=== PATIENT | female | born 1980 | race African-American/Black ===

== ENCOUNTER 2022-10-09 17:55 | Emergency (ER) | payer SELFPAY ==
--- OUTSIDE RECORDS SUMMARY | 2022-10-09 18:01 | XMS REPORT | Continuity of Care Document ---
:1980 Author Organization [facility] t Address [address] [place] [address] Care Team Providers Name Role Phone Handy Blanchard Primary Care Physician CLIF TRUJILLO Attending Clinician Unavailable PARAM TORIBIO Attending Clinician Unavailable Param Toribio DO Attending Clinician Doctor Unassigned, [place] Attending Clinician Unavailable CRYSTAL ALLISON Attending Clinician Unavailable Crystal Allison DO Attending Clinician Silvia Marcelino Attending Clinician [phone] GABRIELLE VEGA Attending Clinician Unavailable Gabrielle Vega DO Attending Clinician TONE DASILVA Attending Clinician Unavailable Tone Stern Attending Clinician SILVIA LOZANO Attending Clinician Unavailable DONI TRUJILLO Attending Clinician Unavailable Doni Trujillo MD Attending Clinician ELISA Attending Clinician Unavailable YOU BURKS Attending Clinician Unavailable You Kulkarni Attending Clinician JO MCCALLUM Attending Clinician Unavailable JO MCCALLUM Attending Clinician Unavailable Jo Mccallum DO Attending Clinician Cydney Newman MD Attending Clinician CYDNEY NEWMAN Attending Clinician Unavailable Susan Jeter RN Attending Clinician Unavailable Only, Ang Db Test Attending Clinician Unavailable Green COMMUNICATIONS DEPARTMENT CHAIRPERSON, Latanya Attending Clinician EDIN LATANYA Attending Clinician Unavailable GUSTAVO, DIMITRIS Attending Clinician Unavailable Gustavo COMMUNICATIONS DEPARTMENT CHAIRPERSON, Dimitris Attending Clinician CARO GARCIA Attending Clinician Unavailable Clif Trujillo Attending Clinician ELAINA BUTCHER Attending Clinician Unavailable QASIM REYES Attending Clinician Unavailable BROCK SUAREZ Attending Clinician Unavailable Maile Moore Attending Clinician CRYSTAL ALLISON Admitting Clinician Unavailable GABRIELLE VEGA Admitting Clinician Unavailable TONE DASILVA Admitting Clinician Unavailable DONI TRUJILLO Admitting Clinician Unavailable ELISA Admitting Clinician Unavailable YOU BURKS Admitting Clinician Unavailable Payers Payer Name Policy Type Policy Number Effective Date Expiration Date [facility] [id number] 2016 PPO 00:00:00 [facility] [id number] 2022 2022 00:00:00 00:00:00 Problems Condition Condition Condition Status Onset Resolution Last Treating Co mments Source Name Details Category Date Date Treatment Clinician Date UNK UNK Diagnosis Active 2021-09-19 Mem oria Active 08-19 14:51:00 l 08/19/2021 00:00: [facility] [place] EGD EGD Diagnosis Active 2021-09-19 Mem oria Active 08-19 14:51:00 l 08/19/2021 00:00: [facility] 00 [place] Pleural Pleural Disease Active 2020-03 Univers thickening thickening 0-06 it y of 00:00: [address] Branch Symptomati Symptomati Disease Active U nivers c mammary c mammary 904 ity of hypertroph [place] Recurrent Recurrent Disease Active Uni vers chest pain chest pain 9-04 it y of 00:00: [place] [address] Medical Branch History of History of Disease Active U nivers COVID-19 COVID-19 8- ity of 00:00: [place] [address] Medical Branch R10.9 - R10.9 - Diagnosis Active 2020-08-21 Memoria UNSPECIFIE UNSPECIFIE 5-18 14:25:00 l D D 00:01: [place] ABDOMINAL ABDOMINAL 00 PAIN PAIN Active 08/13/2020 MH OPID [place] [facility] Microscopi Disease Active U vanesaers c c 2- ity of hemat[place] Scre[place] Screening Disease Active Uni vers examinatio examinatio 1-19 it y of n for STD n for STD 00:00: [place] s (sexually (sexually 00 Medi hortensia transmitte transmitte Br anch d disease) d disease) Essential Essential Disease Active Uni vers hypertensi hypertensi 1-07 it y of on on 00:: [place] [address] Medical Branch BMI BMI Disease Active Overview: Univer s 32.0-32.9, 32.0-32.9, 5-27 Formattin ity of adult adult 00:00: g of this [place] 00 note Medical might be Branch different from the original. 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 Dx in 2011. Previousl y on Lamictal 100mg po once daily. Allergies, Adverse Reactions, Alerts Allergy Allergy Status Severity Reaction(s) Onset Inactive Treating Comm ents Source Name Type Date Date Clinician NO KNOWN Drug Active Univers ALLERGIE Class ity of S [facility] Social History Social Habit Start Date Stop Date Quantity Comments Source Gender identity Universit y of [facility] Sexual orientation Univer sity of [facility] Alcohol intake 2022-10-06 2022-10-06 Current drinker Unive rsity of 00:00:00 00:00:00 of alcohol [facility] (finding) Branch History of Social 2022-10-06 2022-10-06 Univers ity of function 00:00:00 00:00:00 [facility] Exposure to 2022-07-09 2022-07-19 Not sure University of SARS-CoV-2 (event) 00:00:00 18:38:00 [facility] Cigarettes smoked 2020-05-17 2020-05-17 Univers ity of current (pack per 00:00:00 00:00:00 [facility] ) - Reported Branch Cigarette 2020-05-17 2020-05-17 University of pack-years 00:00:00 00:00:00 [facility] Tobacco use and 2020-05-17 2020-05-17 Smokeless Universit y of exposure 00:00:00 00:00:00 tobacco non-user [facility] dicca Branch History of tobacco 2020-05-12 Cigarette Smoker University of use 00:00:00 [facility] Branch History SDOH 2020-04-16 2020-04-16 2 University o f Alcohol Frequency 00:00:00 00:00:00 [facility] Branch History SDOH 2020-04-16 2020-04-16 99 University o f Alcohol Std Drinks 00:00:00 00:00:00 [facility] History SDOH 2020-04-16 2020-04-16 99 University o f Alcohol Binge 00:00:00 00:00:00 [facility] Branch Tobacco Comment 2020-04-16 2020-04-16 2 ciggs a day Univer sity of 00:00:00 00:00:00 [facility] Alcohol Comment 2016-06-24 2016-06-24 socially Universit y of 00:00:00 00:00:00 [facility] Sex Ass[birth year] At [birth year] Universit y of 00:00:00 00:00:00 [facility] Smoking Status Start Date Stop Date Source Ex-smoker 2020-05-17 00:00:00 2020-05-17 00:00:00 [facility] Medical Branch Social History 2017-04-01 17:51:14 [facility] Medications Ordered Filled Start Stop Current Ordering Indication Dosage Frequency Signature Comments Components Source Medication Medication Date Date Medication? Clinician (SIG) Name Name NaCl 0.9% 2022- No 1000mL at 999 Uni vers (NS) bolus 10-06 07-12 mL/hr, ity of infusion 22:00: 01:00 1,000 mL, Rohit as 1,000 mL 00 :00 IV Medical Infusion, Branch ONCE, 1 dose, On Wed10/06/22 at 1700, STAT magnesium 2022- No 2g 2 g, IV Univ ers sulfate in 09-10 Piggyback, it y of water 2 19:00: 18:54 Administer Rohit as gram/50 mL 00 :00 over 60 Medica l (4 %) Minutes, Branch infusion 2 ONCE, 1 g dose, On Wed09/10/22 at 1400, Routine ketorolac 2022- No 30mg 30 mg, Unive rs (TORADOL) 09-10 Slow IV ity of injection 16:00: 16:50 Push, [place] 30 mg 00 :00 ONCE, 1 Medical dose, On Branch Chante 09/10/22 at 1100, Routine maalox:diph 2022- No 15mL 15 mL, Uni vers enhydrAMINE 07-20 04-24 Oral, ity of :lidocaine 00:15: 00:51 ONCE, 1 Rohit as 2 % viscous 00 :00 dose, On Medi hortensia 1:1:1 [place] Branch ([facility] 07/19/22 at [facility]) 191, oral Routine suspension 15 mL amLODIPine 2022-0 Yes 5mg Take 1 Unive rs 5 mg tablet 4-23 tablet by ity of 18:41: mouth in [place] [address] the Medical morning. Branch amLODIPine 3-0 Yes 5mg Take 1 Unive rs 5 mg tablet 4-23 tablet by ity of 18:41: mouth in [place] [address] the Medical morning. Branch amLODIPine 3-0 Yes 5mg Take 1 Unive rs 5 mg tablet 4-23 tablet by ity of 18:41: mouth in [place] [address] the Medical morning. Branch amLODIPine 3-0 Yes 5mg Take 1 Unive rs 5 mg tablet 4-23 tablet by ity of 18:41: mouth in [place] [address] the morning. Branch amLODIPine 3-0 Yes 5mg Take 1 Unive rs 5 mg tablet 4-23 tablet by ity of 18:41: mouth in [place] [address] the Medical morning. Branch amLODIPine 3-0 Yes 5mg Take 1 Unive rs 5 mg tablet 4-23 tablet by ity of 18:41: mouth in [place] [address] the morning. Branch nitroglycer 2021-0 2021- No .4mg 0.4 mg, Un heraclio in 05 05-05 Sublingual ity of (NITROSTAT) 22:00: 21:05 , ONCE, 1 [place] sublingual 00 :00 dose, On Medic al tablet 0.4 Chante 07/31/21 Bra nch mg at 1700, STEVE amLODIPine 2021-0 Yes 5mg Take 5 mg Un heraclio 5 mg tablet 1-19 by mouth ity of 13:27: daily. [address] amLODIPine 2021-0 Yes 5mg Take 5 mg Un heraclio 5 mg tablet 1-19 by mouth ity of 13:27: daily. [address] amLODIPine 2021-0 Yes 5mg Take 5 mg Un heraclio 5 mg tablet 1-19 by mouth ity of 13:27: daily. [address] amLODIPine 2-0 Yes 5mg Take 5 mg Un heraclio 5 mg tablet 1-19 by mouth ity of 13:27: daily. [address] amLODIPine 2-0 Yes 5mg Take 5 mg Un heraclio 5 mg tablet 1-19 by mouth ity of 13:27: daily. [address] amLODIPine 2-0 Yes 5mg Take 5 mg Un heraclio 5 mg tablet 1-19 by mouth ity of 13:27: daily. [address] amLODIPine 2-0 Yes 5mg Take 5 mg Un heraclio 5 mg tablet 1-19 by mouth ity of 13:27: daily. [address] amLODIPine 2-0 Yes 5mg Take 5 mg Un heraclio 5 mg tablet 1-19 by mouth ity of 13:27: daily. [address] amLODIPine 2-0 Yes 5mg Take 5 mg Un heraclio 5 mg tablet 1-19 by mouth ity of 13:27: daily. [place] 15 Medical Branch amLODIPine 2022-0 Yes 5mg Take 5 mg Un heraclio 5 mg tablet 1-19 by mouth ity of 13:27: daily. [place] 15 Medical Branch amLODIPine 2022-0 Yes 5mg Take 5 mg Un heraclio 5 mg tablet 1-19 by mouth ity of 13:27: daily. [place] 15 Medical Branch candesartan 1-0 Yes TAKE 1 Univ ers 16 mg 1-20 TABLET BY ity of tablet 00:00: [facility] EVERY DAY Medical FOR BLOOD Branch PRESSURE candesartan 1-0 Yes TAKE 1 Univ ers 16 mg 1-20 TABLET BY ity of tablet 00:00: [facility] EVERY DAY Medical FOR BLOOD Branch PRESSURE candesartan 1-0 Yes TAKE 1 Univ ers 16 mg 1-20 TABLET BY ity of tablet 00:00: [facility] EVERY DAY Medical FOR BLOOD Branch PRESSURE candesartan 1-0 Yes TAKE 1 Univ ers 16 mg 1-20 TABLET BY ity of tablet 00:00: [facility] EVERY DAY Medical FOR BLOOD Branch PRESSURE candesartan 1-0 Yes TAKE 1 Univ ers 16 mg 1-20 TABLET BY ity of tablet 00:00: [facility] EVERY DAY Medical FOR BLOOD Branch PRESSURE candesartan 1-0 Yes TAKE 1 Univ ers 16 mg 1-20 TABLET BY ity of tablet 00:00: [facility] EVERY DAY Medical FOR BLOOD Branch PRESSURE candesartan 2021-0 Yes TAKE 1 Univ ers 16 mg 1-20 TABLET BY ity of tablet 00:00: [facility] EVERY DAY Medical FOR BLOOD Branch PRESSURE candesartan 2021-0 Yes TAKE 1 Univ ers 16 mg 1-20 TABLET BY ity of tablet 00:00: [facility] EVERY DAY Medical FOR BLOOD Branch PRESSURE candesartan 2021-0 Yes TAKE 1 Univ ers 16 mg 1-20 TABLET BY ity of tablet 00:00: [facility] EVERY DAY Medical FOR BLOOD Branch PRESSURE candesartan 2021-0 Yes TAKE 1 Univ ers 16 mg 1-20 TABLET BY ity of tablet 00:00: [facility] EVERY DAY Medical FOR BLOOD Branch PRESSURE candesartan 2021-0 Yes TAKE 1 Univ ers 16 mg 1-20 TABLET BY ity of tablet 00:00: [facility] EVERY DAY Medical FOR BLOOD Branch PRESSURE candesartan 2021-0 Yes TAKE 1 Univ ers 16 mg 1-20 TABLET BY ity of tablet 00:00: MOUTH [place] EVERY DAY Medical FOR BLOOD Branch PRESSURE candesartan 2020-0 Yes TAKE 1 Univ ers 16 mg 1-20 TABLET BY ity of tablet 00:00: MOUTH [place] 00 EVERY DAY Medical FOR BLOOD Branch PRESSURE candesartan 2020-0 Yes TAKE 1 Univ ers 16 mg 1-20 TABLET BY ity of tablet 00:00: [facility] 00 EVERY DAY Medical FOR BLOOD Branch PRESSURE candesartan 2020-0 Yes TAKE 1 Univ ers 16 mg 1-20 TABLET BY ity of tablet 00:00: [facility] 00 EVERY DAY Medical FOR BLOOD Branch PRESSURE candesartan 2020-0 Yes TAKE 1 Univ ers 16 mg 1-20 TABLET BY ity of tablet 00:00: [facility] 00 EVERY DAY Medical FOR BLOOD Branch PRESSURE candesartan 2020-0 Yes TAKE 1 Univ ers 16 mg 1-20 TABLET BY ity of tablet 00:00: [facility] 00 EVERY DAY Medical FOR BLOOD Branch PRESSURE Immunizations Ordered Filled Immunization Date Status Comments [facility] e Immunization Name Name TDAP 2014-08-21 Completed University of 00:00:00 [facility] TDAP 2014-08-21 Completed University of 00:00:00 [facility] TDAP 2014-08-21 Completed University of 00:00:00 [facility] TDAP 2014-08-21 Completed University of 00:00:00 [facility] TDAP 2014-08-21 Completed University of 00:00:00 [facility] TDAP 2014-08-21 Completed University of 00:00:00 [facility] TDAP 2014-08-21 Completed University of 00:00:00 [facility] TDAP 2014-08-21 Completed University of 00:00:00 [facility] TDAP 2014-08-21 Completed University of 00:00:00 [facility] TDAP 2014-08-21 Completed University of 00:00:00 [facility] TDAP 2014-08-21 Completed University of 00:00:00 [facility] TDAP 2014-08-21 Completed University of 00:00:00 [facility] TDAP 2014-08-21 Completed University of 00:00:00 [facility] TDAP 2014-08-21 Completed University of 00:00:00 [facility] TDAP 2014-08-21 Completed University of 00:00:00 [place] [facility] TDAP 2014-08-21 Completed University of 00:00:00 [place] [facility] TDAP 2014-08-21 Completed University of 00:00:00 [place] [facility] Rubella 2003-06-06 Completed University of 00:00:00 [place] [facility] Rubella 2003-06-06 Completed University of 00:00:00 [place] [facility] Rubella 2003-06-06 Completed University of 00:00:00 [place] [facility] Rubella 2003-06-06 Completed University of 00:00:00 [place] [facility] Rubella 2003-06-06 Completed University of 00:00:00 [place] [facility] Rubella 2003-06-06 Completed University of 00:00:00 [place] [facility] Rubella 2003-06-06 Completed University of 00:00:00 [place] [facility] Rubella 2003-06-06 Completed University of 00:00:00 [place] [facility] Rubella 2003-06-06 Completed University of 00:00:00 [place] [facility] Rubella 2003-06-06 Completed University of 00:00:00 [place] [facility] Rubella 2003-06-06 Completed University of 00:00:00 [place] [facility] Rubella 2003-06-06 Completed University of 00:00:00 [place] [facility] Rubella 2003-06-06 Completed University of 00:00:00 [place] [facility] Rubella 2003-06-06 Completed University of 00:00:00 [place] [facility] Rubella 2003-06-06 Completed University of 00:00:00 [place] [facility] Rubella 2003-06-06 Completed University of 00:00:00 [place] [facility] Rubella 2003-06-06 Completed University of 00:00:00 [place] [facility] Td 1998-06-22 Completed University of 00:00:00 [place] [facility] Td 1998-06-22 Completed University of 00:00:00 [place] [facility] Td 1998-06-22 Completed University of 00:00:00 [place] [facility] Td 1998-06-22 Completed University of 00:00:00 [place] [facility] Td 1998-06-22 Completed University of 00:00:00 [place] [facility] Td 1998-06-22 Completed University of 00:00:00 [place] [facility] Td 1998-06-22 Completed University of 00:00:00 [place] [facility] Td 1998-06-22 Completed University of 00:00:00 [place] [facility] TD, NOS 1998-06-22 Completed University of 00:00:00 [place] [facility] TD, NOS 1998-06-22 Completed University of 00:00:00 [place] [facility] TD, NOS 1998-06-22 Completed University of 00:00:00 [place] [facility] TD, NOS 1998-06-22 Completed University of 00:00:00 [place] [facility] TD, NOS 1998-06-22 Completed University of 00:00:00 [place] [facility] TD, NOS 1998-06-22 Completed University of 00:00:00 [place] [facility] TD, NOS 1998-06-22 Completed University of 00:00:00 [place] [facility] TD, NOS 1998-06-22 Completed University of 00:00:00 [place] [facility] TD, NOS 1998-06-22 Completed University of 00:00:00 [facility] Vital Signs Vital Name Observation Time Observation Value Comments Source Systolic blood 2022-10-06 23:30:00 139 mm[Hg] Univer sity of pressure [facility] Diastolic blood 2022-10-06 23:30:00 107 mm[Hg] Unive rsity of [facility] Heart rate 2022-10-06 23:30:00 90 /min [facility] Respiratory rate 2022-10-06 23:30:00 11 /min [facility] Oxygen saturation in 2022-10-06 23:30:00 100 /min [facility] Arterial blood by [facility] Pulse oximetry [place] Body temperature 2022-10-06 22:12:00 36.78 Rhea [facility] Body height 2022-10-06 22:12:00 157.5 cm [facility] Body weight 2022-10-06 22:12:00 80.967 kg [facility] BMI 2022-10-06 22:12:00 32.65 kg/m2 [facility] Systolic blood 2022-09-10 18:30:00 133 mm[Hg] Univer sity of pressure [facility] Diastolic blood 2022-09-10 18:30:00 100 mm[Hg] Unive rsity of pressure [facility] Heart rate 2022-09-10 18:30:00 71 /min [facility] Respiratory rate 2022-09-10 18:30:00 16 /min [facility] in 2022-09-10 18:30:00 95 /min University of Arterial blood by [place] [facility] Pulse oximetry Branch Body temperature 2022-09-10 15:00:00 37 Rhea Univ ersity of [place] [facility] Body height 2022-09-10 15:00:00 160 cm Universi ty of [place] [facility] Body weight 2022-09-10 15:00:00 79.379 kg Universi ty of [place] [facility] BMI 2022-09-10 15:00:00 31.00 kg/m2 Universi ty of [place] [facility] Systolic blood 2022-07-19 23:40:00 148 mm[Hg] Univer sity of pressure [place] [facility] Diastolic blood 2022-07-19 23:40:00 105 mm[Hg] Unive rsity of pressure [place] [facility] Heart rate 2022-07-19 23:40:00 72 /min Universi ty of [place] [facility] Body temperature 2022-07-19 23:40:00 36.72 Rhea Univ ersity of [place] [facility] Respiratory rate 2022-07-19 23:40:00 14 /min Univ ersity of [place] [facility] Body height 2022-07-19 23:40:00 160 cm Universi ty of [place] [facility] Body weight 2022-07-19 23:40:00 79.379 kg Universi ty of [place] [facility] BMI 2022-07-19 23:40:00 31.00 kg/m2 Universi ty of [place] [facility] Oxygen saturation in 2022-07-19 23:40:00 99 /min University of Arterial blood by [place] [employer] hortensia Pulse oximetry Branch Systolic blood 2022-01-03 02:00:00 140 mm[Hg] Univer sity of pressure [place] [facility] Diastolic blood 2022-01-03 02:00:00 94 mm[Hg] Unive rsity of pressure [place] [facility] Heart rate 2022-01-03 02:00:00 68 /min Universi ty of [place] [facility] Respiratory rate 2022-01-03 02:00:00 16 /min Univ ersity of [place] [facility] Oxygen saturation in 2022-01-03 02:00:00 98 /min University of Arterial blood by [place] [employer] hortensia Pulse oximetry Branch Body temperature 2022-01-02 23:35:00 36.44 Rhea Univ ersity of [place] [facility] Body height 2022-01-02 23:35:00 160 cm Universi ty of [place] Medical [place] Body weight 2022-01-02 23:35:00 79.379 kg Universi ty of [facility] BMI 2022-01-02 23:35:00 31.00 kg/m2 Universi ty of [facility] Systolic blood 2021-08-01 00:06:00 156 mm[Hg] Univer sity of pressure [facility] Diastolic blood 2021-08-01 00:06:00 106 mm[Hg] Unive rsity of pressure [facility] Heart rate 2021-08-01 00:06:00 70 /min Universi ty of [facility] Respiratory rate 2021-08-01 00:06:00 22 /min [facility] Oxygen saturation in 2021-08-01 00:06:00 98 /min [facility] Arterial blood by [facility] Pulse oximetry Branch Body temperature 2021-07-31 20:33:00 36.5 Rhea Univ ersity of [facility] Systolic blood 2021-04-16 19:18:00 131 mm[Hg] Univer sity of pressure [facility] Diastolic blood 2021-04-16 19:18:00 89 mm[Hg] Unive rsity of pressure [facility] Heart rate 2021-04-16 19:18:00 77 /min Universi ty of [facility] Body temperature 2021-04-16 19:18:00 37.06 Rhea Univ ersity of [facility] Respiratory rate 2021-04-16 19:18:00 20 /min Univ ersity of [facility] Body weight 2021-04-16 19:18:00 84.687 kg Universi ty of [facility] BMI 2021-04-16 19:18:00 32.05 kg/m2 Universi ty of [facility] Heart Rate 2017-04-01 17:39:00 Ramon Obando Systolic (mm Hg) 2017-04-01 17:39:00 Frantz Obando Diastolic (mm Hg) 2017-04-01 17:39:00 Mem rocío [place] BMI Calculated 2017-04-01 17:39:00 Chayo ventura [place] Weight 2017-04-01 17:39:00 [facility] [place] Height 2017-04-01 17:39:00 [facility] Oral (F) 2017-04-01 17:39:00 98.1 F [facility] Procedures Procedure Date / Time Performed Performing Clinician Sour e XR CHEST 1 VW 2022-10-06 22:41:53 Singer [facility] POCT TEST 2022-10-06 22:29:00 Singer [facility] URINALYSIS 2022-10-06 22:27:00 Singer [facility] TROPONIN I 2022-10-06 22:24:00 Singer [facility] COMP. METABOLIC PANEL 2022-10-06 22:24:00 [facility] ([id number]) [facility] CBC WITH DIFF 2022-10-06 22:24:00 [facility] CONSENT/REFUSAL FOR 2022-10-06 21:49:47 Doctor Unassigned, No [facility] DIAGNOSIS AND [facility] TREATMENT MAGNESIUM 2022-09-10 16:50:00 Crystal Allison [facility] TROPONIN I 2022-09-10 16:50:00 Crystal Allison [facility] COMP. METABOLIC PANEL 2022-09-10 16:50:00 Crystal Allison [facility] ([id number]) [facility] CBC WITH DIFF 2022-09-10 16:50:00 Crystal Allison [facility] XR CHEST 1 VW 2022-09-10 16:16:39 Crystal Allison [facility] ASSIGNMENT OF BENEFITS 2022-09-10 15:45:58 Doctor Unassigned, No [facility] CONSENT/REFUSAL FOR 2022-09-10 14:42:19 Doctor Unassigned, No [facility] DIAGNOSIS AND [facility] TREATMENT LIPASE 2022-07-20 00:52:00 Gabrielle Vega [facility] TROPONIN I 2022-07-20 00:52:00 Gabrielle Vega [facility] COMP. METABOLIC PANEL 2022-07-20 00:52:00 Gabrielle Vega [facility] ([id number]) [facility] CBC WITH DIFF 2022-07-20 00:52:00 Gabrielle Vega [facility] XR CHEST 1 VW 2022-07-20 00:32:09 Gabrielle Vega [facility] NOTICE OF PRIVACY 2022-07-19 23:32:52 Doctor Unassigned, No [facility] CONSENT/REFUSAL FOR 2022-07-19 23:32:16 Doctor Unassigned, No [facility] DIAGNOSIS AND [facility] TREATMENT ASSIGNMENT OF BENEFITS 2022-05-08 19:37:50 Doctor Unassigned, No [facility] XR CHEST 1 VW 2022-01-03 01:20:25 [facility] 2022-01-03 01:11:00 [facility] BASIC METABOLIC PANEL 2022-01-03 01:11:00 Doni Trujillo [facility] (NA, K, CL, CO2, Medical Branch GLUCOSE, BUN, CREATININE, CA) CBC WITH DIFF 2022-01-03 01:11:00 Doni Trujillo [facility] CONSENT/REFUSAL FOR 2022-01-02 23:30:35 Doctor Unassigned, No Un [facility] DIAGNOSIS AND [facility] TREATMENT TROPONIN I 2021-07-31 23:15:00 You [facility] XR CHEST 1 VW 2021-07-31 22:40:00 You [facility] POCT TEST 2021-07-31 21:52:00 You Burks [facility] URINALYSIS 2021-07-31 21:03:00 [facility] 2021-07-31 20:50:00 You [facility] COMP. METABOLIC PANEL 2021-07-31 20:50:00 You Burks [facility] ([id number]) [facility] TOTAL BETA HCG ASSAY 2021-07-31 20:50:00 oYu Burks [facility] CBC WITH DIFF 2021-07-31 20:50:00 You [facility] N-TERMINAL PRO-BNP 2021-07-31 20:50:00 You Burks [facility] CONSENT/REFUSAL FOR 2021-07-31 20:25:04 Doctor Unassigned, No [facility] Name [facility] TREATMENT EXTERNAL PROVIDER 2021-04-24 06:01:00 Doctor Unassigned, No [facility] Name [facility] section 2003-09-25 05:00:00 [facility] Encounters Start End Encounter Admission Attending Care Care Encounter Source Date/Time Date/Time Type Type Clinicians Facility Department ID 2021-09-12 Outpatient CHARESTELA MHBL MHBL [id number] MHBL 15:21:46 ELILIZAAissatou 2021-01-27 Emergency [facility] [id number] Univers 16:50:49 ity [facility] 2021-01-24 Emergency [facility] [id number] Univers 07:42:10 ity [facility] 2022-10-06 2022-10-06 Emergency Jj TORIBIO [facility] ERT [id number] Univers 17:14:00 20:49:00 PARAM reneyonny [facility] 2022-10-06 2022-10-06 Emergency [facility] 1.2.801.619 [id number] Univers 17:14:00 20:49:00 Param CATHERINE 350.1.13.10 i ty [facility] 4.2.7.2.686 [facility] [phone] [facility] 084 Branch 2022-10-06 2022-10-06 Orders Doctor SANCHEZ 1.2.840.114 [id number] Univers 00:00:00 00:00:00 Only Unassigned, ETHAN 350.1.13.[address] [place] [facility] 4.2.7.[address] [place] [address] [phone] [facility] 009 Branch 2022-09-10 2022-09-10 Emergency X KEEGAN [facility] ERT [id number] Univers 10:03:00 14:01:00 CRYSTAL estrella [facility] 2022-09-10 2022-09-10 Emergency Keegan [facility] 1.2.840.114 [id number] Univers 10:03:00 14:01:00 Crystal Rajiv ALEXANDER 350.1.13.10 ity of [place] 4.2.7.2.686 [facility] [id number] [facility] 084 Branch 2022-09-10 2022-09-10 Orders Doctor LAURA 1.2.840.114 [id number] Univers 00:00:00 00:00:00 Only Unassigned, ETHAN 350.1.13.[address] [place] [facility] 4.2.7.2.686 Rohit as [phone] [facility] 009 Branch 2022-09-10 2022-09-10 Telephone [facility] 1.2.840.114 [id number] Univers 00:00:00 00:00:00 Silvia Esquivel PROPERTY DISPOSAL MANAGER 350.1.13.10 ity of [facility] 4.2.7.2.686 Rohit as MATERNAL [phone] Med ical & CHILD [address] [place] [address] 2022-07-19 2022-07-19 Emergency [facility] [id number] Univers 18:41:00 21:45:00 GABRIELLE ity [facility] 2022-07-19 2022-07-[address] [facility] 1.2.840.114 1 [id number] Univers 18:41:00 21:45:00 Gabrielle [place] 350.1.13.10 i ty of [place] 4.2.7.2.686 [facility] [id number] [place] [address] [place] 2022-05-08 2022-05-08 [facility] [id number] Univers 13:41:44 23:59:00 TONE ity o f [facility] 2022-05-08 2022-05-08 [facility] 1.2.840.114 [id number] Univers 13:41:44 23:59:00 Encounter Tone ALEXANDER 350.1.13.10 ity of [place] 4.2.7.2.686 [facility] [phone] [facility] 800 Branch 2022-05-08 2022-05-08 Orders Doctor SANCHEZ 1.2.840.114 [id number] Univers 00:00:00 00:00:00 Only Unassigned, ETHAN 350.1.13.[address] [place] [facility] 4.2.7.2.686 Rohit as [id number] [address] 2022-04-17 2022-04-17 Telephone [facility] 1.2.840.114 [id number] Univers 00:00:00 00:00:00 Silvia Esquivel PROPERTY DISPOSAL MANAGER 350.1.13.[address]7.2.686 Rohit as MATERNAL [phone] Med ical & CHILD [address] [place] [address] 2022-04-16 2022-04-16 [facility] [id number] Univers 13:45:00 13:45:00 SILVIA haque [facility] 2022-02-06 2022-02-06 Outpatient Aissatou [facility] [id number] Univers 00:00:00 00:00:00 TONE haque [facility] 2022-02-03 2022-02-03 Telephone [facility] 1.2.840.114 [id number] Univers 00:00:00 00:00:00 Silvia Esquivel PROPERTY DISPOSAL MANAGER 350.1.13.10 ity [place] [address].7.2.686 Rohit as MATERNAL [id number] [facility] & CHILD [address] [place] [address] 2022-01-06 2022-01-06 Outpatient Aissatou [facility] [id number] Univers 14:45:00 14:45:00 TONE haque [facility] 2022-01-06 2022-01-06 [facility] 1.2.840.114 [id number] Univers 00:00:00 00:00:00 Management Tone Reyez PROPERTY DISPOSAL MANAGER 350.1.13.10 ity of [place] [address].7.2.686 Rohit as MATERNAL [phone] Med ical & CHILD [address] [place] [address] 2022-01-05 2022-01-05 Telephone [facility] 1.2.716.834 [id number] Univers 00:00:00 00:00:00 Rosjason R PROPERTY DISPOSAL MANAGER 350.1.13.10 ity of [address]686 Rohit as MATERNAL [id number] Med ical & CHILD [address] [place] [address] 2022-01-02 2022-01-02 Emergency X PAUL, [facility] ERT [id number] Univers 18:42:00 21:36:00 DONI yonny [facility] 2022-01-02 2022-01-02 [facility] 1.2.767.311 [id number] Univers 18:42:00 21:36:00 [facility] 350.1.13.10 i ty of [place] [address] [place] [phone] 2021-10-24 2021-10-24 Outpatient FERGUSON_STEF [facility] 813 [place] 00:00:00 00:00:00 HN 0729 [facility] 2021-07-31 2021-07-31 Emergency X BURKS, [facility] ERT [id number] Univers 15:36:00 19:27:00 YOU reneyonny [facility] 2021-07-31 2021-07-31 Emergency [facility] 1.2.840.114 [id number] Univers 15:36:00 19:27:00 [facility] 350.1.13.10 i ty [place] [address] [place] [address] [phone] [place] [address] [place] 2021-04-24 2021-04-24 Orders Doctor LAURA 1.2.840.114 [id number] Univers 00:00:00 00:00:00 Only Unassigned, ETHAN 350.1.13.10 ity of [place] [address]686 Rohit as [id number] [address] 2021-04-16 2021-04-16 Office [facility] 1.2.840.114 [id number] Univers 13:15:00 13:52:40 Visit Tone Reyez PROPERTY DISPOSAL MANAGER 350.1.13.10 ity of [place] [address].2.7.2.686 Rohit as MATERNAL [phone] Med ical & CHILD [address] [place] [address] 2021-04-16 2021-04-16 Outpatient R DASILVA [facility] [id number] Univers 13:15:00 13:52:40 TONE estrella o hieu [facility] 2021-04-16 2021-04-16 Outpatient R BROWN [facility] [id number] Univers 13:15:00 13:15:00 ALFKERRI estrella o [facility] 2021-04-16 2021-04-16 Outpatient R BROWN [facility] [id number] Univers 13:15:00 13:15:00 TONE reneyonny o [facility] 2021-04-16 2021-04-16 Orders Doctor LAURA 1.2.840.114 [id number] Univers 00:00:00 00:00:00 Only Unassigned, ETHAN 350.1.13.[address] [place] [facility] 4.2.7.2.686 Rohit as [phone] [address] 2021-03-28 2021-03-28 Outpatient R JO MCCALLUM [facility] [id number] Univers 15:30:00 15:33:16 JO MCCALLUM i ty of [facility] 2021-03-28 2021-03-28 Office Javier [facility] 1.2.840.114 [id number] Univers 15:30:00 15:33:16 Visit [facility] 350.1.13.10 i ty [facility] 4.2.7.2.686 [place] [id number] Nj dical NAL 085 [facility] 2021-03-25 2021-03-25 Outpatient R BLAKE [facility] [id number] Univers 00:00:00 00:00:00 SILVIA haque [facility] 2021-03-18 2021-03-18 [facility]phone [facility] 1.2.006.184 [id number] Univers 00:00:00 00:00:00 Tone Reyez PROPERTY DISPOSAL MANAGER 350.1.13.10 ity [facility] 4.2.7.2.686 Rohit as MATERNAL [phone] [facility] ical & CHILD 107 [facility] 2021-01-01 2021-01-01 Case [facility] 1.2.840.114 [id number] Univers 00:00:00 00:00:00 Management Wondiful A [facility] 350.1.13.10 ity [facility] 4.2.7.2.686 Rohit as Kameron?[place] [phone] [address] Medical Office Building 2020-12-23 2020-12-23 [facility] 1.2.754.487 [id number] Univers 16:37:07 23:59:00 Encounter Wondiful A [place] [facility].1.13.10 [facility] 4.2.7.2.686 [place] [facility] [id number] [address] 2020-12-23 2020-12-23 Outpatient [facility] [id number] Univers 00:00:00 00:00:00 WONDIFUL ity o f [facility] 2020-11-26 2020-11-26 Outpatient R [facility] [id number] Univers 00:00:00 00:00:00 WONDIFUL ity o f [facility] 2020-11-24 2020-11-24 LAURA Kang 1.2.840.114 [id number] Univers 00:00:00 00:00:00 (Out) Aneatrice ETHAN 350.1.13.[address]2.686 Rohit as [phone] [address] 2020-11-24 2020-11-24 LAURA Kang 1.2.840.114 [id number] Univers 00:00:00 00:00:00 (Out) Aneatrice ETHAN 350.1.13.10 [address]2.686 Rohit as [phone] [address] 2020-11-22 2020-11-22 Office [facility] 1.2.840.114 [id number] Univers 15:13:50 17:00:33 Visit Wondiful A Health 350.1.13.10 ity of [place] 4.2.7.2.686 Rohit as Kameron?[place] [phone] Nj mary anne velez 044 [place] Medical [facility] 2020-11-22 2020-11-22 Laboratory Only, Ang Db Test [facility] 1.2.8 40.114 [id number] Univers 10:35:16 10:45:16 Only Latanya Burnett [facility] 350.1.13.10 ity of [place] 4.2.7.2.686 Rohit as Kameron?[place] [phone] Nj mary anne velez 370 [place] [facility] 2020-11-22 2020-11-22 Outpatient R EDIN [facility] [id number] Univers 10:45:00 10:45:00 [facility] 2020-11-14 2020-11-14 Outpatient FBCOVID FBCOVID [id number] FBCOVID 00:00:00 00:00:00 [id number] 9375-08-10 2020-11-05 Outpatient R BLAKE, [facility] [id number] Univers 00:00:00 00:00:00 SILVIA estrella o [facility] 2020-11-04 2020-11-04 Outpatient R GUSTAVO [facility] [id number] Univers 13:40:00 13:40:00 [facility] 2020-11-04 2020-11-04 Cheo [facility] 1.2.840.114 [id number] Univers 00:00:00 00:00:00 (Out) [facility] 350.1.13.10 i ty of [place] 4.2.7.2.686 Rohit as Professio [phone] Nj mary anne rivera 044 [place] Office Building One 2020-10-15 2020-10-15 Outpatient R BLAKE [facility] [id number] Univers 00:00:00 00:00:00 SILVIA ity o f [facility] 2020-09-12 2020-09-12 Outpatient R JOSE [facility] [id number] Univers 08:30:00 08:30:[address] [facility] 2020-08-21 2020-08-22 Outpt Diag nullFlavo [facility] [id number] Memoria 19:15:00 04:59:00 Services r Outpatient 00 l Imaging Topher Rader 2020-08-21 2020-08-22 Outpt Diag nullFlavo [facility] [id number] Memoria 19:15:00 04:59:00 Services r Outpatient 00 l Imaging Topher Rader 2020-08-21 2020-08-21 Outpatient Charafeddin MHOIP OIP [id number] 14:15:00 23:59:00 eClif C 00 2020-08-21 2020-08-21 Outpatient R AKINSIPE, [facility] [id number] Univers 00:00:00 00:00:00 SILVIA ity o f [facility] 2020-08-17 2020-08-17 Outpatient R HADLEY, [facility] [id number] Univers 00:00:00 00:00:00 [facility] 2020-08-13 2020-08-13 Outpatient R GRAMM, [facility] [id number] Univers 10:00:00 10:00:00 [facility] 2020-07-17 2020-07-17 Outpatient R GRAMM, [facility] [id number] Univers 08:00:00 08:00:[address] [facility] 2020-07-01 2020-07-01 Outpatient R JOSE, [facility] [id number] Univers 09:00:00 09:00:00 CARO ityonny [facility] 2020-05-24 2020-05-24 Outpatient R KISHA, [facility] [id number] Univers 00:00:00 00:00:00 WONDIFUL ity o f [facility] 2020-05-20 2020-05-20 Outpatient R KISHA, [facility] [id number] Univers 14:20:00 14:20:00 WONDIFUL ity o f [facility] 2020-05-17 2020-05-17 Outpatient R KISHA, [facility] [id number] Univers 10:00:00 10:00:00 WONDIFUL ity o f [facility] 2020-05-07 2020-05-07 Outpatient R AKINSIPE, [facility] [id number] Univers 00:00:00 00:00:00 SILVIA hagen [facility] 2020-04-23 2020-04-23 Outpatient R AMY, [facility] [id number] Univers 15:40:00 15:40:00 QASIM hagen [facility] 2020-04-16 2020-04-16 Outpatient R AKINSIPE, [facility] [id number] Univers 15:45:00 15:45:00 SILVIA hagen [facility] 2020-03-04 2020-03-04 Outpatient R DASILVA, [facility] [id number] Univers 00:00:00 00:00:00 TONE haque [facility] 2020-02-28 2020-02-28 Outpatient R DANIELA, [facility] [id number] Univers 11:00:00 11:00:00 BROCK ity [facility] 2017-04-01 2017-04-[address] [facility] [id number] Memoria 17:00:00 05:59:59 r Primary 00 l [facility] 2017-04-01 2017-04-[address] [facility] [id number] Memoria 17:00:00 05:59:59 r Primary 00 l [facility] 2017-04-01 2017-04-01 Outpatient Teresa [facility] [id number] 11:00:00 23:59:59 Maile Huggins 2017-04-01 2017-04-01 Outpatient JAN [facility] [id number] Memoria 11:00:00 11:00:00 00 l [place] Results Test Description Test Time Test Comments Results Result Comments Source TROPONIN I 2022-10-06 22:56:51 Test Item Value Reference Range Interpretation Comme nts TROPONIN I (test code = 1380886543) 0.003 ng/mL <=0.034 ISABEL (test code = ISABEL) Reference (Normal) Range (defined by the 99th percentile reference limit): <= 0.034 ng/mL Note: Cardiac troponin begins to rise 3-4 hours after the onset of ischemia. Repeat in 4-6 hours if the sample was drawn within 3-4 hours of the onset of the symptom and found normal. Diagnosis of myocardial injury is made with acute changes in cTn concentrations with at least one serial sample above the 99th percentile upper reference limit (URL), taken together with the patient's clinical presentation. Biotin has been reported to cause a negative bias, interpret results relative to patient's use of biotin. Lab Interpretation (test code = Normal 93130-0) [facility] METABOLIC PANEL (63116)2022-10-06 22:46:50 Test Item Value Reference Range Interpretation Comments NA (test code = 138 mmol/L 135-145 2920280564) K (test code = 4.3 mmol/L 3.5-5.0 1272099668) CL (test code = 101 mmol/L 98-108 3638143495) CO2 TOTAL (test code = 29 mmol/L 23-31 6644461881) AGAP (test code = 8 2-16 3605912822) BUN (test code = 12 mg/dL 7-23 0233049761) GLUCOSE (test code = 107 mg/dL 70-110 7158976705) CREATININE (test code = 0.58 mg/dL 0.50-1.04 3191698986) TOTAL BILI (test code = 0.7 mg/dL 0.1-1.3 0556487279) CALCIUM (test code = 9.1 mg/dL 8.6-10.6 5396213600) T PROTEIN (test code = 8.0 g/dL 6.3-8.2 1897361658) ALBUMIN (test code = 4.6 g/dL 3.5-5.0 9122868829) ALK PHOS (test code = 63 U/L 34-122 2946138848) ALTv (test code = 33 U/L 5-35 1742-6) AST(SGOT) (test code = 44 U/L 13-40 H 8161871555) eGFR (test code = 112.9 mL/min/1.73m2 4938120275) ISABEL (test code = ISABEL) Association of Glomerular Filtration Rate (GFR) and Staging of Kidney Disease* + --+ --+ ------+| GFR (mL/min/1.73 m2) ?| With Kidney Damage ?| ?Without Kidney Damage+ --------+ --------+ +| ?>90 ?| ?Stage one ?| ? Normal ?+ ---+ ---+ -------+| ?60-89 ?| ?Stage two ?| ? Decreased GFR ? + --+ --+ ------+| ?30-59 ?| ?Stage three ?| ? Stage three ? + --+ --+ ------+| ?15-29 ?| ?Stage four ? | ? Stage four ?+ ---+ ---+ -------+| ?<15 (or dialysis) ? ?| ?Stage five ? | ? Stage five ?+ ---+ ---+ -------+ *Each stage assumes the associated GFR level has been in effect for at least three months. ?Stages 1 to 5, with or without kidney disease, indicate chronic kidney disease. Notes: Determination of stages one and two (with eGFR >59mL/min/1.73 m2) requires estimation of kidney damage for at least three months as defined by structural or functional abnormalities of the kidney, manifested by either:Pathological abnormalities or Markers of kidney damage (including abnormalities in the composition of the blood or urine or abnormalities in imaging tests). Lab Interpretation Abnormal (test code = 73339-2) [facility] WITH [id number] 22:38:48 Test Item Value Reference Range Interpretation Comments WBC (test code = 5.41 See_Comment [Automated 7597-2) message] The sy stem which generated this result transmitted reference range : 4.30 - 11.10 10*3/?L. The reference range was not used to interpret this result as normal/abnormal . RBC (test code = 4.53 See_Comment [Automated 860-8) message] The sy stem which generated this result transmitted reference range : 3.93 - 5.25 10*6/?L. The reference range was not used to interpret this result as normal/abnormal . HGB (test code = 13.0 g/dL 11.6-15.0 718-7) HCT (test code = 39.1 % 35.7-45.2 4544-3) MCV (test code = 86.3 fL 80.6-95.5 787-2) MCH (test code = 28.7 pg 25.9-32.8 785-6) MCHC (test code = 33.2 g/dL 31.6-35.1 786-4) RDW-SD (test code = 41.5 fL 39.0-49.9 35971-6) RDW-CV (test code = 13.2 % 12.0-15.5 788-0) PLT (test code = 344 See_Comment [Automated 777-3) message] The sy stem which generated this result transmitted reference range : 166 - 358 10*3/ ?L. The reference r ashlee was not used to interpret this result as normal/abnormal . MPV (test code = 8.6 fL 9.5-12.9 L 37432-0) NRBC/100 WBC (test 0.0 See_Comment [Automat ed code = 5002422744) message] The system which generated this result transmitted reference range : 0.0 - 10.0 /100 WBCs. The refer ence range was not u sed to interpret th is result as normal/abnormal . NRBC x10^3 (test code See_Comment [Auto mated = 3368519303) message] The s ystem which generated this result transmitted reference range : 10*3/?L. The reference range was not used to interpret this result as normal/abnormal . GRAN MAT (NEUT) % 61.7 % (test code = 770-8) IMM GRAN % (test code 0.20 % = 6590944757) LYMPH % (test code = 27.4 % 736-9) MONO % (test code = 9.1 % 5905-5) EOS % (test code = 0.7 % 713-8) BASO % (test code = 0.9 % 706-2) GRAN MAT x10^3(ANC) 3.34 10*3/uL 1.88-7.09 (test code = 5087576466) IMM GRAN x10^3 (test 0.00-0.06 code = 3802252534) LYMPH x10^3 (test code 1.48 10*3/uL 1.32-3.29 = 731-0) MONO x10^3 (test code 0.49 10*3/uL 0.33-0.92 = 742-7) EOS x10^3 (test code = 0.04 10*3/uL 0.03-0.39 711-2) BASO x10^3 (test code 0.05 10*3/uL 0.01-0.07 = 704-7) Lab Interpretation Abnormal (test code = 47098-1) [id number] 22:29[facility]00 Test Item Value Reference Range Interpretation Comments POCT PREG (test code = 1605) Negative On board controls acceptable with Yes C Line (test code = 3574) POCT PREG LOT # (test code = 3575) [id number] POCT PREG TEST DATE (test 03/10/2024 code = 3576) Lab Interpretation (test code = Normal 07033-2) [facility] WITH [id number] 17:59:04 Test Item Value Reference Range Interpretation Comments WBC (test code = 5.27 See_Comment [Automated 4099-2) message] The sy stem which generated this result transmitted reference range : 4.30 - 11.10 10*3/?L. The reference range was not used to interpret this result as normal/abnormal . RBC (test code = 5.04 See_Comment [Automated 491-8) message] The sy stem which generated this result transmitted reference range : 3.93 - 5.25 10*6/?L. The reference range was not used to interpret this result as normal/abnormal . HGB (test code = 14.5 g/dL 11.6-15.0 718-7) HCT (test code = 42.9 % 35.7-45.2 4544-3) MCV (test code = 85.1 fL 80.6-95.5 787-2) MCH (test code = 28.8 pg 25.9-32.8 785-6) MCHC (test code = 33.8 g/dL 31.6-35.1 786-4) RDW-SD (test code = 40.7 fL 39.0-49.9 58302-6) RDW-CV (test code = 13.1 % 12.0-15.5 788-0) PLT (test code = 350 See_Comment [Automated 917-3) message] The sy stem which generated this result transmitted reference range : 166 - 358 10*3/ ?L. The reference r ashlee was not used to interpret this result as normal/abnormal . MPV (test code = 9.5 fL 9.5-12.9 11961-8) IPF % (test code = 2.0 % 1.3-7.7 Platelet count [id number]) measured by fluorescence method. NRBC/100 WBC (test 0.4 See_Comment [Automat ed code = 1351156041) message] The system which generated this result transmitted reference range : 0.0 - 10.0 /100 WBCs. The refer ence range was not u sed to interpret th is result as normal/abnormal . NRBC x10^3 (test code 0.02 See_Comment [Auto mated = 5901718884) message] The s ystem which generated this result transmitted reference range : 10*3/?L. The reference range was not used to interpret this result as normal/abnormal . GRAN MAT (NEUT) % 58.4 % (test code = 770-8) IMM GRAN % (test code 0.40 % = 6836467314) LYMPH % (test code = 30.4 % 736-9) MONO % (test code = 7.8 % 5905-5) EOS % (test code = 1.3 % 713-8) BASO % (test code = 1.7 % 706-2) GRAN MAT x10^3(ANC) 3.08 10*3/uL 1.88-7.09 (test code = 2423421024) IMM GRAN x10^3 (test 0.00-0.06 code = 0954175461) LYMPH x10^3 (test code 1.60 10*3/uL 1.32-3.29 = 731-0) MONO x10^3 (test code 0.41 10*3/uL 0.33-0.92 = 742-7) EOS x10^3 (test code = 0.07 10*3/uL 0.03-0.39 711-2) BASO x10^3 (test code 0.09 10*3/uL 0.01-0.07 H = 704-7) GIANT PLATELETS (test Present See_Comment A [Auto mated code = 5908-9) message] The system which generated this result transmitted reference range : (none). The reference range was not used to interpret this result as normal/abnormal . Lab Interpretation Abnormal (test code = 74939-8) [id number]51:05 Test Item Value Reference Range Interpretation Comments TROPONIN I (test code = 0.005 ng/mL <=0.034 0304815796) ISABEL (test code = ISABEL) Reference (Normal) Range (defined by the 99th percentile reference limit): <= 0.034 ng/mL Note: Cardiac troponin begins to rise 3-4 hours after the onset of ischemia. Repeat in 4-6 hours if the sample was drawn within 3-4 hours of the onset of the symptom and found normal. Diagnosis of myocardial injury is made with acute changes in cTn concentrations with at least one serial sample above the 99th percentile upper reference limit (URL), taken together with the patient's clinical presentation. Biotin has been reported to cause a negative bias, interpret results relative to patient's use of biotin. Lab Interpretation Normal (test code = 29839-4) [facility] 17:41:03 Test Item Value Reference Range Interpretation Comments MAGNESIUM (test code = 0440675277) 1.6 mg/dL 1.7-2.4 L Lab Interpretation (test code = Abnormal 14924-9) [facility]OLIC PAN[facility] ([id number])2022-09-10 17:40:43 Test Item Value Reference Range Interpretation Comments NA (test code = 136 mmol/L 135-145 7531874773) K (test code = 4.8 mmol/L 3.5-5.0 8789486776) CL (test code = 101 mmol/L 98-108 7043307448) CO2 TOTAL (test code 25 mmol/L 23-31 = 5036644344) AGAP (test code = 10 2-16 8911661932) BUN (test code = 10 mg/dL 7-23 4985685147) GLUCOSE (test code = 95 mg/dL 70-110 4564302578) CREATININE (test code 0.61 mg/dL 0.50-1.04 = 0590495462) TOTAL BILI (test code 0.9 mg/dL 0.1-1.1 = 3703357571) CALCIUM (test code = 9.4 mg/dL 8.6-10.6 1467602178) T PROTEIN (test code 7.9 g/dL 6.3-8.2 = 4640481425) ALBUMIN (test code = 4.6 g/dL 3.5-5.0 9802182940) ALK PHOS (test code = 69 U/L 34-122 7511891504) ALTv (test code = 17 U/L 5-35 1742-6) AST(SGOT) (test code 26 U/L 13-40 = 9513329260) eGFR (test code = 107.0 mL/min/1.73m2 3951189251) ISABEL (test code = ISABEL) Association of Glomerular Filtration Rate (GFR) and Staging of Kidney Disease* + + +- +| GFR (mL/min/1.73 m2) ?| With Kidney Damage ?| ?Without Kidney Damage+ ------+ ----+ ------+| ?>90 ?| ?Stage one ?| ? Normal ?+ -+ + -+| ?60-89 ?| ?Stage two ?| ? Decreased GFR ? + + +- +| ?30-59 ?| ?Stage three ?| ? Stage three ? + + +- +| ?15-29 ?| ?Stage four ? | ? Stage four ?+ -+ + -+| ?<15 (or dialysis) ? ?| ?Stage five ? | ? Stage five ?+ -+ + -+ *Each stage assumes the associated GFR level has been in effect for at least three months. ?Stages 1 to 5, with or without kidney disease, indicate chronic kidney disease. Notes: Determination of stages one and two (with eGFR >59mL/min/1.73 m2) requires estimation of kidney damage for at least three months as defined by structural or functional abnormalities of the kidney, manifested by either:Pathological abnormalities or Markers of kidney damage (including abnormalities in the composition of the blood or urine or abnormalities in imaging tests). [facility] [id number] 02:20:00 Test Item Value Reference Range Interpretation Comments TROPONIN I (test code = 0.002 ng/mL <=0.034 4061549383) ISABEL (test code = ISABEL) Reference (Normal) Range (defined by the 99th percentile reference limit): <= 0.034 ng/mL Note: Cardiac troponin begins to rise 3-4 hours after the onset of ischemia. Repeat in 4-6 hours if the sample was drawn within 3-4 hours of the onset of the symptom and found normal. Diagnosis of myocardial injury is made with acute changes in cTn concentrations with at least one serial sample above the 99th percentile upper reference limit (URL), taken together with the patient's clinical presentation. Biotin has been reported to cause a negative bias, interpret results relative to patient's use of biotin. Lab Interpretation Normal (test code = 41397-9) [facility]. METABOLIC PANEL ([id number])2022-07-20 02:02:17 Test Item Value Reference Range Interpretation Comments NA (test code = 135 mmol/L 135-145 4041428083) K (test code = 3.7 mmol/L 3.5-5.0 4442641109) CL (test code = 98 mmol/L 98-108 6120789003) CO2 TOTAL (test code = 28 mmol/L 23-31 0777557382) AGAP (test code = 9 2-16 5671063695) BUN (test code = 12 mg/dL 7-23 3040717660) GLUCOSE (test code = 138 mg/dL 70-110 H 6065610012) CREATININE (test code = 0.63 mg/dL 0.50-1.04 7667785632) TOTAL BILI (test code = 0.6 mg/dL 0.1-1.7 3442584671) CALCIUM (test code = 9.4 mg/dL 8.6-10.6 1214202685) T PROTEIN (test code = 7.7 g/dL 6.3-8.2 6771453452) ALBUMIN (test code = 4.6 g/dL 3.5-5.0 6673588183) ALK PHOS (test code = 55 U/L 34-122 5852835828) ALTv (test code = 19 U/L 5-35 1742-6) AST(SGOT) (test code = 24 U/L 13-40 6723076005) eGFR (test code = 103.1 mL/min/1.73m2 7396318144) ISABEL (test code = ISABEL) Association of Glomerular Filtration Rate (GFR) and Staging of Kidney Disease* + --+ --+ ------+| GFR (mL/min/1.73 m2) ?| With Kidney Damage ?| ?Without Kidney Damage+ --------+ --------+ +| ?>90 ?| ?Stage one ?| ? Normal ?+ ---+ ---+ -------+| ?60-89 ?| ?Stage two ?| ? Decreased GFR ? + --+ --+ ------+| ?30-59 ?| ?Stage three ?| ? Stage three ? + --+ --+ ------+| ?15-29 ?| ?Stage four ? | ? Stage four ?+ ---+ ---+ -------+| ?<15 (or dialysis) ? ?| ?Stage five ? | ? Stage five ?+ ---+ ---+ -------+ *Each stage assumes the associated GFR level has been in effect for at least three months. ?Stages 1 to 5, with or without kidney disease, indicate chronic kidney disease. Notes: Determination of stages one and two (with eGFR >59mL/min/1.73 m2) requires estimation of kidney damage for at least three months as defined by structural or functional abnormalities of the kidney, manifested by either:Pathological abnormalities or Markers of kidney damage (including abnormalities in the composition of the blood or urine or abnormalities in imaging tests). Lab Interpretation Abnormal (test code = 71952-0) [facility]:01:55 Test Item Value Reference Range Interpretation Comments LIPASE (test code = 1733520472) 51 U/L 0-220 Lab Interpretation (test code = Normal 71110-0) [facility] [id number] 01:17:35 Test Item Value Reference Range Interpretation Comments WBC (test code = 7.00 See_Comment [Automated 6917-2) message] The sy stem which generated this result transmitted reference range : 4.30 - 11.10 10*3/?L. The reference range was not used to interpret this result as normal/abnormal . RBC (test code = 4.67 See_Comment [Automated 111-9) message] The sy stem which generated this result transmitted reference range : 3.93 - 5.25 10*6/?L. The reference range was not used to interpret this result as normal/abnormal . HGB (test code = 13.3 g/dL 11.6-15.0 718-7) HCT (test code = 40.9 % 35.7-45.2 4544-3) MCV (test code = 87.6 fL 80.6-95.5 787-2) MCH (test code = 28.5 pg 25.9-32.8 785-6) MCHC (test code = 32.5 g/dL 31.6-35.1 786-4) RDW-SD (test code = 40.7 fL 39.0-49.9 08872-4) RDW-CV (test code = 12.9 % 12.0-15.5 788-0) PLT (test code = 358 See_Comment [Automated 777-3) message] The sy stem which generated this result transmitted reference range : 166 - 358 10*3/ ?L. The reference r ashlee was not used to interpret this result as normal/abnormal . MPV (test code = 8.4 fL 9.5-12.9 L 94469-6) NRBC/100 WBC (test 0.0 See_Comment [Automat ed code = 5945866507) message] The system which generated this result transmitted reference range : 0.0 - 10.0 /100 WBCs. The refer ence range was not u sed to interpret th is result as normal/abnormal . NRBC x10^3 (test code See_Comment [Auto mated = 1184511609) message] The s ystem which generated this result transmitted reference range : 10*3/?L. The reference range was not used to interpret this result as normal/abnormal . GRAN MAT (NEUT) % 59.3 % (test code = 770-8) IMM GRAN % (test code 0.30 % = 8495552288) LYMPH % (test code = 32.1 % 736-9) MONO % (test code = 6.6 % 5905-5) EOS % (test code = 0.7 % 713-8) BASO % (test code = 1.0 % 706-2) GRAN MAT x10^3(ANC) 4.15 10*3/uL 1.88-7.09 (test code = 4503913211) IMM GRAN x10^3 (test 0.00-0.06 code = 1434558703) LYMPH x10^3 (test code 2.25 10*3/uL 1.32-3.29 = 731-0) MONO x10^3 (test code 0.46 10*3/uL 0.33-0.92 = 742-7) EOS x10^3 (test code = 0.05 10*3/uL 0.03-0.39 711-2) BASO x10^3 (test code 0.07 10*3/uL 0.01-0.07 = 704-7) Lab Interpretation Abnormal (test code = 61990-6) [facility] [id number] 23:53:09 Test Item Value Reference Interpretation Comments Range TROPONIN I (test 0.001 ng/mL See_Comment [Automated code = 0743549802) message] The system which generated this result transmitted reference range : <=0.034. The reference range was not used to interpret this result as normal/abnormal . ISABEL (test code = Reference (Normal) ISABEL) Range (defined by the 99th percentile reference limit): <= 0.034 ng/mL Note: Cardiac troponin begins to rise 3-4 hours after the onset of ischemia. Repeat in 4-6 hours if the sample was drawn within 3-4 hours of the onset of the symptom and found normal. Diagnosis of myocardial injury is made with acute changes in cTn concentrations with at least one serial sample above the 99th percentile upper reference limit (URL), taken together with the patient's clinical presentation. Biotin has been reported to cause a negative bias, interpret results relative to patient's use of biotin. Lab Interpretation Normal (test code = 02932-5) [facility] [id number] 21:52:00 Test Item Value Reference Range Interpretation Comments POCT PREG (test code = 1605) Negative On board controls acceptable with Postive C Line (test code = 3574) POCT PREG LOT # (test code = 3575) [id number] POCT PREG TEST DATE (test 12-26-2022 code = 3576) Lab Interpretation (test code = Normal 74099-3) [facility] BETA HCG [id number] 21:49:06 Test Item Value Reference Range Interpretation Comments BETA HCG (test <2.39 See_Comment [Automated m essage] code = The system [facility] h 2148342122) generated this result transmit magali reference range : Non- fe male and male patien ts: <5 mIU/mL. The reference range was not used to interpret this result as normal/abnormal . ISABEL (test code Gestational Age ? ? = ISABEL) ?Range (mIU/mL) 1-10 ?Weeks ?70-47593651-07 Weeks ?28018-31909866-62 Weeks ?9440-87664544-74 Weeks ?1531-733795 Biotin has been reported to cause a negative bias, interpret results relative to patient's use of biotin. [facility] [id number] 21:25:41 Test Item Value Reference Interpretation Comments Range TROPONIN I (test 0.003 ng/mL See_Comment [Automated code = 3883226511) message] The system which generated this result transmitted reference range : <=0.034. The reference range was not used to interpret this result as normal/abnormal . ISABEL (test code = Reference (Normal) ISABEL) Range (defined by the 99th percentile reference limit): <= 0.034 ng/mL Note: Cardiac troponin begins to rise 3-4 hours after the onset of ischemia. Repeat in 4-6 hours if the sample was drawn within 3-4 hours of the onset of the symptom and found normal. Diagnosis of myocardial injury is made with acute changes in cTn concentrations with at least one serial sample above the 99th percentile upper reference limit (URL), taken together with the patient's clinical presentation. Biotin has been reported to cause a negative bias, interpret results relative to patient's use of biotin. Lab Interpretation Normal (test code = 76116-0) [facility]MINAL [id number] 21:22:38 Test Item Value Reference Range Interpretation Comments NT-proBNP (test code 63 pg/mL See_Comment [Autom ated = 2943704351) message] The system which generated this result transmitted reference range : <=125. The reference range was not used to interpret this result as normal/abnormal . ISABEL (test code = ISABEL) Biotin has been reported to cause a negative bias, interpret results relative to patient's use of biotin. Lab Interpretation Normal (test code = 67238-6) [facility]. METABOLIC PANEL ([id number])2021-07-31 21:13:58 Test Item Value Reference Range Interpretation Comments NA (test code = 137 mmol/L 135-145 7871257764) K (test code = 4.9 mmol/L 3.5-5.0 8798894672) CL (test code = 104 mmol/L 98-108 6113628795) CO2 TOTAL (test code 23 mmol/L 23-31 = 1380479300) AGAP (test code = 2-16 6669505052) BUN (test code = 9 mg/dL 7-23 1608548643) GLUCOSE (test code = 101 mg/dL 70-110 3444131921) CREATININE (test code 0.75 mg/dL 0.50-1.04 = 7608203962) TOTAL BILI (test code 0.7 mg/dL 0.1-1.1 = 4516982888) CALCIUM (test code = 8.9 mg/dL 8.6-10.6 6385370364) T PROTEIN (test code 7.5 g/dL 6.3-8.2 = 8704296648) ALBUMIN (test code = 4.5 g/dL 3.5-5.0 0764965332) ALK PHOS (test code = 61 U/L 34-122 4619332394) ALTv (test code = 11 U/L 5-35 1742-6) AST(SGOT) (test code 25 U/L 13-40 = 2879462982) eGFR (test code = mL/min/1.73m2 9539014966) ISABEL (test code = ISABEL) Association of Glomerular Filtration Rate (GFR) and Staging of Kidney Disease* + + +- +| GFR (mL/min/1.73 m2) ?| With Kidney Damage ?| ?Without Kidney Damage+ ------+ ----+ ------+| ?>90 ?| ?Stage one ?| ? Normal ?+ -+ + -+| ?60-89 ?| ?Stage two ?| ? Decreased GFR ? + + +- +| ?30-59 ?| ?Stage three ?| ? Stage three ? + + +- +| ?15-29 ?| ?Stage four ? | ? Stage four ?+ -+ + -+| ?<15 (or dialysis) ? ?| ?Stage five ? | ? Stage five ?+ -+ + -+ *Each stage assumes the associated GFR level has been in effect for at least three months. ?Stages 1 to 5, with or without kidney disease, indicate chronic kidney disease. Notes: Determination of stages one and two (with eGFR >59mL/min/1.73 m2) requires estimation of kidney damage for at least three months as defined by structural or functional abnormalities of the kidney, manifested by either:Pathological abnormalities or Markers of kidney damage (including abnormalities in the composition of the blood or urine or abnormalities in imaging tests). [facility] WITH [id number] 21:02:56 Test Item Value Reference Range Interpretation Comments WBC (test code = See_Comment [Automated message] 6690-2) The system [employer] generated this result transmitted ref erence range: 4.30 - 1 1.10 10*3/?L. The re ference range was not u sed to interpret this result as normal/abnor mal. RBC (test code = See_Comment [Automated message] 789-8) The system [employer] generated this result transmitted ref erence range: 3.93 - 5 .25 10*6/?L. The re ference range was not u sed to interpret this result as normal/abnor mal. HGB (test code = 12.9 g/dL 11.6-15.0 718-7) HCT (test code = 40.1 % 35.7-45.2 4544-3) MCV (test code = 86.2 fL 80.6-95.5 787-2) MCH (test code = 27.7 pg 25.9-32.8 785-6) MCHC (test code = 32.2 g/dL 31.6-35.1 786-4) RDW-SD (test code 42.1 fL 39.0-49.9 = 98608-9) RDW-CV (test code 13.3 % 12.0-15.5 = 788-0) PLT (test code = See_Comment [Automated message] 777-3) The system whic h generated this result transmitted ref erence range: 166 - 35 8 10*3/?L. The re ference range was not u sed to interpret this result as normal/abnor mal. MPV (test code = 9.6 fL 9.5-12.9 40248-3) NRBC/100 WBC (test See_Comment [Automat ed message] code = 7200537076) The syste m which generated this result transmitted ref erence range: 0.0 - 10 .0 /100 WBCs. The refer ence range was not u sed to interpret this result as normal/abnor mal. NRBC x10^3 (test <0.01 See_Comment [Automated message] code = 3362006685) The syste m which generated this result transmitted ref erence range: 10*3/?L. The reference range was not used to interpr et this result as normal/abnormal . GRAN MAT (NEUT) % 64.0 % (test code = 770-8) IMM GRAN % (test 0.30 % code = 4516472934) LYMPH % (test code 26.2 % = 736-9) MONO % (test code 8.4 % = 5905-5) EOS % (test code = 0.4 % 713-8) BASO % (test code 0.7 % = 706-2) GRAN MAT 4.42 10*3/uL 1.88-7.09 x10^3(ANC) (test code = 6554397179) IMM GRAN x10^3 <0.03 0.00-0.06 (test code = 8775395587) LYMPH x10^3 (test 1.81 10*3/uL 1.32-3.29 code = 731-0) MONO x10^3 (test 0.58 10*3/uL 0.33-0.92 code = 742-7) EOS x10^3 (test 0.03 10*3/uL 0.03-0.39 code = 711-2) BASO x10^3 (test 0.05 10*3/uL 0.01-0.07 code = 704-7) [facility] Notes Date/Time Note Provider Source 2020-08-21 14:47:36-00:00 PROCEDURE INFORMATION: KELLI Forsyth Exam: US Abdomen, Limited; Right Upper Quadrant Exam date and time: 08/21/2020 3:04 PM Age: 39 years old Clinical indication: Epigastric pain; Additional info: /epigastric pain TECHNIQUE: Imaging protocol: US abdomen. Real time ultrasou nd with image documentation. Limited exam focused on the right upper quadrant . COMPARISON: No relevant prior studies available. FINDINGS: Liver: There is diffuse heterogeneous increase i n echogenicity of the liver. Findings suggest fatty infiltration of liver and /or other nonspecific hepatocellular disease. Gallbladder: No gallstones. There is no gallblad chester wall thickening. Common bile duct: The CBD is partially obscured. CBD measures 2 mm. Pancreas: The pancreas is largely obscur ed by bowel gas. Visualized portion of the pancreas is unremarkable. Right kidney: The right kidney measures 10.5 cm. No discrete mass or cyst is visualized. No shadowing calculi. No hydronephro sis. IMPRESSION: 1. Fatty infiltration of liver. 2. No other significant sonographic abnormality is noted. Chris Olsen MD On 08/21/2020 15:52:05; [facility] [id number] 2020-08-21 14:47:36-00:00 PROCEDURE INFORMATION: [facility] Exam: US Abdomen, Limited; Right Upper Quadrant Exam date and time: 08/21/2020 3:04 PM Age: 39 years old Clinical indication: Epigastric pain; Additional info: /epigastric pain TECHNIQUE: Imaging protocol: US abdomen. Real time ultrasou nd with image documentation. Limited exam focused on the right upper quadrant . COMPARISON: No relevant prior studies available. FINDINGS: Liver: There is diffuse heterogeneous increase i n echogenicity of the liver. Findings suggest fatty infiltration of liver and /or other nonspecific hepatocellular disease. Gallbladder: No gallstones. There is no gallblad chester wall thickening. Common bile duct: The CBD is partially obscured. CBD measures 2 mm. Pancreas: The pancreas is largely obscur ed by bowel gas. Visualized portion of the pancreas is unremarkable. Right kidney: The right kidney measures 10.5 cm. No discrete mass or cyst is visualized. No shadowing calculi. No hydronephro sis. IMPRESSION: 1. Fatty infiltration of liver. 2. No other significant sonographic abnormality is noted. Chris Olsen MD On 08/21/2020 15:52:05; STACY [id number] 2020-08-21 14:47:36-00:00 PROCEDURE INFORMATION: KELLI Rader Exam: US Abdomen, Limited; Right Upper Quadrant Exam date and time: 08/21/2020 3:04 PM Age: 39 years old Clinical indication: Epigastric pain; Additional info: /epigastric pain TECHNIQUE: Imaging protocol: US abdomen. Real time ultrasou nd with image documentation. Limited exam focused on the right upper quadrant . COMPARISON: No relevant prior studies available. FINDINGS: Liver: There is diffuse heterogeneous increase i n echogenicity of the liver. Findings suggest fatty infiltration of liver and /or other nonspecific hepatocellular disease. Gallbladder: No gallstones. There is no gallblad chester wall thickening. Common bile duct: The CBD is partially obscured. CBD measures 2 mm. Pancreas: The pancreas is largely obscur ed by bowel gas. Visualized portion of the pancreas is unremarkable. Right kidney: The right kidney measures 10.5 cm. No discrete mass or cyst is visualized. No shadowing calculi. No hydronephro sis. IMPRESSION: 1. Fatty infiltration of liver. 2. No other significant sonographic abnormality is noted. Chris Olsen MD On 08/21/2020 15:52:05; STACY [id number]"
--- NOTE | 2022-10-09 18:52 | RAD REPORT ---
EXAM DESCRIPTION: RAD - Chest Single View - 10/09/2022 6:45 pm CLINICAL HISTORY: CHEST PAIN COMPARISON: No comparisons FINDINGS: Lines: None. Lungs: Mild hazy opacities in lung bases. Pleural: No significant pleural effusions or pneumothorax. Cardiac: The heart size is within normal limits. Mediastinum: Within normal limits. Bones: No acute fractures. Other: None IMPRESSION: Hazy basilar opacities which may be secondary to underpenetration. No definite acute pro cess identified.
[2022-10-09 19:11] LABS: Hematocrit 37.8 % (36.0-45.0); Lymphocytes % 30.2 % (15.3-44.8); MCV 86.3 fL (80-100); MPV 6.9 fL (7.6-11.3); RBC Red Blood Cell Count 4.37 M/uL (3.86-4.86)
[2022-10-09 19:13] LABS: Albumin 3.9 g/dL (3.4-5.0); Bilirubin Direct 0.1 mg/dL (0-0.2); Bilirubin Indirect, Calculated 0.3 mg/dL (0.2-0.8); Bilirubin Total 0.4 mg/dL (0.2-1.0); Magnesium 1.9 mg/dL (1.6-2.4); Potassium 3.4 mEq/L (3.5-5.1); Protein, Total 7.7 g/dL (6.4-8.2); Protime INR 1.1; Troponin High Sensitivity 3.4 pg/mL (<58.9)
--- NOTE | 2022-10-09 19:43 | RAD REPORT ---
EXAM DESCRIPTION: CTAngio Aorta For Dissection - 10/09/2022 7:31 pm CLINICAL HISTORY: chest pain, dizziness, htn COMPARISON: No comparisons TECHNIQUE: CTA of the chest, abdomen, and pelvis was performed with IV contrast. 3D maximum intensit y pixel (MIP) reconstructions were created All CT scans are performed using dose optimization technique as appropriate and may include automated exposure control or mA/KV adjustment according to patient size. FINDINGS: Thorax: Chest Wall: No abnormal mass Lungs: No acute abnormality. Pleura: No effusions or pneumothorax. Rissa/Mediastinum: No lymphadenopathy. Aorta/Pulmonary Arteries: Unremarkable Heart: Normal size. Abdomen/Pelvis: Liver: No acute abnormality or suspicious lesions. Biliary: No biliary ductal dilatation. Stomach: No significant focal abnormality. Duodenum: No significant focal abnormality. Pancreas: No significant abnormality. Spleen: No significant abnormality. Adrenal: No suspicious lesions. Kidney/ureter: No hydronephrosis. No renal calculi. Retroperitoneum: No retroperitoneal adenopathy. Vascular: No aneurysm. Bowel: No significant focal abnormality. Peritoneum: Trace pelvic free fluid which is likely physiologic. Bladder: Grossly unremarkable. Reproductive: No adnexal masses. Bones: No acute fracture. Other: n/a IMPRESSION: No acute findings within the chest, abdomen, or pelvis. No evidence of aortic aneurysm, aortic dissection, or pulmonary embolus.
[2022-10-09] MEDS ORDERED: HYDRALAZINE HCL 20 MG/ML VIAL ONE ×2 (20:07→20:51)
--- NOTE | 2022-10-09 21:01 | ER ---
Nurse's Notes [facility] Name: Petty Pike Age: 42 yrs Sex: Female : 1980 Arrival Date: 10/09/2022 Time: 17:55 Bed 4 Private MD: Diagnosis: Hypertensive emergency;Gastro-esophageal reflux disease without esophagitis Presentation: 10/09 18:05 Chief complaint: Patient states: high blood pressure, chest pain 2 days ago that has aa5 resolved. 18:05 Coronavirus screen: At this time, the client does not indicate any symptoms associated aa5 with coronavirus-19. Ebola Screen: Patient denies travel to an Ebola-affected area in the 21 days before illness onset. Initial Sepsis Screen: Does the patient meet any 2 criteria? No. Patient's initial sepsis screen is negative. Does the patient have a suspected source of infection? No. Patient's initial sepsis screen is negative. Risk Assessment: Do you want to hurt yourself or someone else? Patient reports no desire to harm self or others. Onset of symptoms was 2022. 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 - Social history:: Smoking status: Patient/guardian denies using tobacco, the patient reports quitting approximately 2 years ago. Screenin:09 [facility] ED Fall Risk Assessment (Adult) History of falling in the last 3 months, mb9 including since admission No falls in past 3 months (0 pts) Confusion or Disorientation No (0 pts) Intoxicated or Sedated No (0 pts) Impaired Gait No (0 pts) Mobility Assist Device Used No (0 pt) Altered Elimination No (0 pt) Score/Fall Risk Level 0 - 2 = Low Risk Oriented to surroundings, Maintained a safe environment, Educated pt \T\ family on fall prevention, incl call for assistance when getting out of bed. Abuse screen: Denies threats or abuse. Nutritional screening: No deficits noted. Tuberculosis screening: No symptoms or risk factors identified. Assessment: 19:08 General: Appears in no apparent distress. Behavior is calm, cooperative. Pain: mb9 Complains of pain in chest Pain does not radiate. Pain currently is 4 out of 10 on a pain scale. Quality of pain is described as pressure, Pain began 2-3 days ago. Is intermittent. Neuro: Russ Agitation-Sedation Scale (RASS): 0 - Alert and Calm Level of Consciousness is awake, alert, obeys commands, Oriented to person, place, time, situation, Appropriate for age. Cardiovascular: Heart tones S1 S2 present Patient's skin is warm and dry. Rhythm is regular. Respiratory: Airway is patent Respiratory effort is even, unlabored, Respiratory pattern is regular, symmetrical, Breath sounds are clear bilaterally. GI: Abdomen is round non-distended, Bowel sounds present X 4 quads. Abd is soft and non tender X 4 quads. Derm: Skin is pink, warm \T\ dry. Musculoskeletal: Range of motion: intact in all extremities. 20:02 Reassessment: No changes from previously documented assessment. Patient and/or family mb9 updated on plan of care and expected duration. Pain level reassessed. Patient is alert, oriented x 3, equal unlabored respirations, skin warm/dry/pink. 21:09 Reassessment: Patient and/or family updated on plan of care and expected duration. Pain mb9 level reassessed. Patient is alert, oriented x 3, equal unlabored respirations, skin warm/dry/pink. Patient states feeling better. Patient states symptoms have improved. Vital Signs: 18:05 BP 154 / 107; Pulse 83; Resp 18 S; Temp 98.3(TE); Pulse Ox 98% on R/A; aa5 19:09 BP 148 / 109; Pulse 79; Resp 16; Pulse Ox 100% on R/A; mb9 20:01 BP 161 / 114; Pulse 85; Resp 16; Pulse Ox 100% on R/A; Weight 83.91 kg; Height 5 ft. 4 mb9 in. ; 20:21 BP 158 / 101; Pulse 78; Resp 18; Pulse Ox 100% ; mb9 20:54 BP 119 / 87; Pulse 90; Resp 16; Pulse Ox 100% on R/A; mb9 20:01 Body Mass Index 31.75 (83.91 kg, 162.56 cm) mb9 ED Course: 17:58 Patient arrived in ED. mr 17:58 Ana Lilia Medina [facility]C [facility]. sb4 17:58 Domingo Dorantes MD is Attending Physician. sb4 18:05 Arm band placed on Patient placed in an exam room, on a stretcher. aa5 18:14 Triage completed. aa5 18:16 Rebecca Su, RN is Primary Nurse. mb9 18:47 XRAY Chest (1 view) In Process Unspecified. EDMS 19:00 EKG done, by ED staff, reviewed by Ana Lilia Medina PA-C. Inserted saline lock: 20 gauge in mb9 left antecubital area, using aseptic technique. 19:10 Placed in gown. Bed in low position. Call light in reach. Side rails up X 1. Client mb9 placed on continuous cardiac and pulse oximetry monitoring. NIBP monitoring applied. cafeteria monitor on. 19:10 No provider procedures requiring assistance completed. mb9 19:11 Basic Metabolic Panel Sent. mb9 19:11 CBC with Diff Sent. mb9 19:11 D-Dimer Sent. mb9 19:11 LFT's Sent. mb9 19:11 Magnesium Sent. mb9 19:11 NT PRO-BNP Sent. mb9 19:11 PT-INR Sent. mb9 19:11 Troponin HS Sent. mb9 19:33 CT Aorta for Dissection In Process Unspecified. EDMS 21:00 Alissa Gonzalez MD is Referral Physician. sb4 21:09 IV discontinued, intact, bleeding controlled, No redness/swelling at site. Pressure mb9 dressing applied. Administered Medications: 20:01 Drug: hydrALAZINE IVP 5 mg Route: IVP; Site: left antecubital; mb9 20:48 Drug: hydrALAZINE IVP 5 mg Route: IVP; Site: left antecubital; mb9 Medication: 19:11 VIS not applicable for this client. mb9 Outcome: 21:00 Discharge ordered by . sb4 21:09 Discharged to home ambulatory. mb9 21:09 Condition: stable 21:09 Discharge instructions given to patient, Instructed on discharge instructions, follow up and referral plans. Demonstrated understanding of instructions, follow-up care. 21:09 Patient left the ED. mb9 Signatures: Dispatcher [employer] [facility] Vin Rebecca BonillaDaya RN RN Ana Lilia Velez PA-C PA-C sb4 Rebecca Su, RN RN mb9 Corrections: (The following items were deleted from the chart) 20:02 20:01 BP 161 / 114; Pulse 85bpm; Resp 16bpm; Pulse Ox 100% RA; mb9 mb9
--- NOTE | 2022-10-09 21:01 | EDPHYS ---
Physician Documentation [facility] Name: Petty Pike Age: 42 yrs Sex: Female : 1980 Arrival Date: 10/09/2022 Time: 17:55 Bed 4 Private MD: ED Physician Domingo Dorantes HPI: 10/09 18:21 This 42 yrs old Black Female presents to ER via Ambulatory with complaints of High sb4 Blood Pressure. 18:21 The patient has elevated blood pressure and discovered this at home, with a home sb4 device. Onset: The symptoms/episode began/occurred 3 day(s) ago. Associated signs and symptoms: Pertinent positives: chest pain, dizziness, lightheadedness, nausea, vomiting, Pertinent negatives: headache, weakness. Severity of symptoms: At its worst the blood pressure was 161 mm Hg, in the emergency department the blood pressure is unchanged. 42 year old female with hypertension on amlodipine and cadesartan presents with complaints of elevated BP readings at home associated with lightheadedness, mild chest pain, nausea and vomiting. She was evaluated at [place] ED 2 days ago for chest pain and had a negative workup. She followed up with her PCP yesterday. Does report some stressors in her life- recently lost her job and son joined the . Reports compliance with her BP medications and that her BP typically runs 120/80. Does endorse moderate alcohol intake. 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 - Social history:: Smoking status: Patient/guardian denies using tobacco, the patient reports quitting approximately 2 years ago. ROS: 18:21 Constitutional: Negative for fever, chills, and weight loss, Eyes: Negative for injury, sb4 pain, redness, and discharge, Respiratory: Negative for shortness of breath, cough, wheezing, and pleuritic chest pain, Abdomen/GI: Negative for abdominal pain, nausea, vomiting, diarrhea, and constipation, Back: Negative for injury and pain, MS/Extremity: Negative for injury and deformity, Skin: Negative for injury, rash, and discoloration. 18:21 Cardiovascular: Positive for chest pain, of the mid-sternal area, Negative for edema, orthopnea, palpitations, paroxysmal nocturnal dyspnea. 18:21 Neuro: Positive for dizziness, Negative for altered mental status, headache, seizure activity, syncope, visual changes. 18:21 All other systems are negative. Exam: 18:21 Constitutional: This is a well developed, well nourished patient who is awake, alert, sb4 and in no acute distress. Head/Face: Normocephalic, atraumatic. Eyes: Extra-ocular motions intact. Periorbital areas with no swelling, redness, or edema. ENT: Mucous membranes moist. Cardiovascular: Regular rate and rhythm with a normal S1 and S2. Respiratory: Lungs have equal breath sounds bilaterally, clear to auscultation and percussion. No rales, rhonchi or wheezes noted. No increased work of breathing, no retractions or nasal flaring. Abdomen/GI: Soft, non-tender, no distension. Skin: Warm, dry with normal turgor. Normal color with no rashes, no lesions, and no evidence of cellulitis. MS/ Extremity: Pulses equal, no cyanosis. Neurovascular intact. Full, normal range of motion. Neuro: Awake and alert, GCS 15, oriented to person, place, time, and situation. Cranial nerves II-XII grossly intact. Motor strength 5/5 in all extremities. Sensory grossly intact. Cerebellar exam normal. Normal gait. Vital Signs: 18:05 BP 154 / 107; Pulse 83; Resp 18 S; Temp 98.3(TE); Pulse Ox 98% on R/A; aa5 19:09 BP 148 / 109; Pulse 79; Resp 16; Pulse Ox 100% on R/A; mb9 20:01 BP 161 / 114; Pulse 85; Resp 16; Pulse Ox 100% on R/A; Weight 83.91 kg; Height 5 ft. 4 mb9 in. ; 20:21 BP 158 / 101; Pulse 78; Resp 18; Pulse Ox 100% ; mb9 20:54 BP 119 / 87; Pulse 90; Resp 16; Pulse Ox 100% on R/A; mb9 20:01 Body Mass Index 31.75 (83.91 kg, 162.56 cm) mb9 MDM: 17:58 Patient medically screened. sb4 18:21 Differential diagnosis: hypertensive crisis, Malignant HTN, CVA, intracerebral sb4 hemorrhage, acute ME, AAA, gastritis. Data interpreted:. Data reviewed:. 20:59 Care significantly affected by the following chronic conditions: Hypertension. sb4 Counseling: I had a detailed discussion with the patient and/or guardian regarding: the historical points, exam findings, and any diagnostic results supporting the discharge/admit diagnosis, the presence of at least one elevated blood pressure reading (>120/80) during this emergency department visit, lab results, radiology results, to return to the emergency department if symptoms worsen or persist or if there are any questions or concerns that arise at home. Response to treatment: the patient's symptoms have resolved after treatment, the patient's blood pressure is in an acceptable range, the patient's condition has returned to base line, the patient is now symptom free, and as a result, I will discharge patient. 10/09 18:15 Order name: Basic Metabolic Panel; Complete Time: 19:16 4 10/09 18:15 Order name: CBC with Diff; Complete Time: 19:16 sb4 10/09 18:15 Order name: D-Dimer; Complete Time: 19:16 sb4 10/09 18:15 Order name: LFT's; Complete Time: 19:16 sb4 10/09 18:15 Order name: Magnesium; Complete Time: 19:16 sb4 10/09 18:15 Order name: NT PRO-BNP; Complete Time: 19:16 sb4 10/09 18:15 Order name: PT-INR; Complete Time: 19:16 sb4 10/09 18:15 Order name: Troponin HS; Complete Time: 19:16 sb4 10/09 20:40 Order name: Troponin HS [facility] 10/09 18:15 Order name: XRAY Chest (1 view); Complete Time: 18:55 4 10/09 19:17 Order name: CT Aorta for Dissection; Complete Time: 19:54 sb4 10/09 18:15 Order name: EKG; Complete Time: 18:16 sb4 10/09 18:15 Order name: Cardiac monitoring; Complete Time: 18:57 sb4 10/09 18:15 Order name: EKG - Nurse/Tech; Complete Time: 19:11 sb4 10/09 18:15 Order name: IV Saline Lock; Complete Time: 18:57 sb4 10/09 18:15 Order name: Labs collected and sent; Complete Time: 18:57 sb4 10/09 18:15 Order name: O2 Per Protocol; Complete Time: 18:16 sb4 10/09 18:15 Order name: O2 Sat Monitoring; Complete Time: 18:16 sb4 EC:07 Rate is 75 beats/min. Rhythm is regular. QRS [place] is Normal. [place] interval is normal at sb4 170 msec. QRS interval is normal at 72 msec. QT interval is normal at 370 msec. No Q waves. Clinical impression: Normal ECG. Interpreted by me. Reviewed by me. Administered Medications: 20:01 Drug: hydrALAZINE IVP 5 mg Route: IVP; Site: left antecubital; mb9 20:48 Drug: hydrALAZINE IVP 5 mg Route: IVP; Site: left antecubital; mb9 Disposition: 10/10 19:18 Co-signature as Attending Physician, Domingo Dorantes MD I reviewed the patient's care rt provided by the Advanced Practice Provider and agree with the diagnosis and treatment plan. Disposition Summary: 10/09/22 21:00 Discharge Ordered Location: Home sb4 Problem: an acute exacerbation sb4 Symptoms: have improved sb4 Condition: Fair sb4 Diagnosis - Hypertensive emergency sb4 - Gastro-esophageal reflux disease without esophagitis sb4 Followup: sb4 - With: - When: 2 - 3 days - Reason: Further diagnostic work-up, Recheck today's complaints, Re-evaluation by your physician Discharge Instructions: - Discharge Summary Sheet sb4 - Hypertension, Adult, [id number] sb4 - Gastroesophageal Reflux Disease, Adult, [id number] sb4 Forms: - Medication Reconciliation Form sb4 - Thank You Letter sb4 - Antibiotic Education sb4 - Prescription Opioid Use sb4 - Patient Portal Instructions sb4 Signatures: Dispatcher [employer] Daya Krishnamurthy, RN RN dave5 Ana Lilia Medina PATalishaC PATalishaC sb4 Rebecca Su RN RN mb9 Domingo Dorantes MD MD rt
[2022-10-09 23:51] VITALS: TEMP 98.3
[2022-10-10 00:27] VITALS: O2SAT 100
[2022-10-10 00:30] VITALS: BP 119/87
--- NOTE | 2022-10-12 11:50 | EKG ---
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
== END 2022-10-09 21:09 | disposition home or self-care (01) ==
LOC: ER 17:55
DX: I16.1 Hypertensive emergency (principal); K21.9 Gastro-esophageal reflux disease without esophagitis
CPT/HCPCS: 36415; 71045; 71275; 74175; 80048; 80076; 83735; 83880; 84484; 85025; 85379; 85610; 93005; 96374; 99285; J0360